=== PATIENT | male | born 1955 | race Caucasian/White ===

== ENCOUNTER 2021-01-28 01:07 | Emergency (ER) | payer MEDICARE, OTHER ==
[2021-01-28] MEDS ORDERED: HYDROmorphone 0.5 MG/0.5 ML Syringe IVPUSH PRN (01:18)
--- NOTE | 2021-01-28 01:22 | EDM.PDOC ---
ED HPI GENERAL MEDICAL PROBLEM - General Chief Complaint: Flank Pain Stated Complaint: Flank pain Time Seen by Provider: 01/28/21 01:10 Source of Information: Reports: Patient History Limitations: Reports: No Limitations - History of Present Illness INITIAL COMMENTS - FREE TEXT/NARRATIVE: Patient comes in with complaint of suspected kidney stone. Has had renal stones before, one required surgery for removal. Has felt intermittent discomfort right flank since November, saying that he figured he had a stone that was "moving". NSAIDs helped. Now has had pain for a week that has gradually worsened. Feels like he can't urinate today. No hematuria. No fevers/chills/nausea/emesis/bowel changes. Denies HEENT/Resp/CV/Neuro changes. - Related Data Allergies Allergy/AdvReac Type Severity Reaction Status Date / Time No Known Allergies Allergy Verified 01/28/21 02:36 Home Meds: Home Meds Aspirin [Children's Aspirin] 81 mg PO BEDTIME 06/11/14 [History] Metoprolol Succinate [Toprol XL] 200 mg PO QAM 06/11/14 [History] Simvastatin 40 mg PO BEDTIME 06/11/14 [History] amLODIPine Besylate/Benazepril [Amlodipine-Benazepril 10-20 MG] 1 tab PO QPM 06/11/14 [History] sitaGLIPtin Phosphate [Januvia] 100 mg PO QAM 06/11/14 [History] Vit C/E/Zn/Certified Pediatric Nurse Practitioner/Lut/Talib/Bio/Saf [Retaine Vision Softgel] 1 cap PO DAILY 01/28/21 [History] glipiZIDE [Glucotrol XL] 1 tab PO BID 01/28/21 [History] metFORMIN HCl [Metformin HCl] 1 tab PO BID 01/28/21 [History] Past Medical History Cardiovascular History: Reports: High Cholesterol, Hypertension Respiratory History: Reports: COPD Genitourinary History: Reports: Renal Calculus Endocrine/Metabolic History: Reports: Diabetes, Type II Social & Family History - Tobacco Use Tobacco Use Status *Q: Current Every Day Tobacco User Packs/Tins Daily: 2 ED ROS GENERAL - Review of Systems Review Of Systems: Comprehensive ROS is negative, except as noted in HPI. ED EXAM, GENERAL - Physical Exam Exam: See Below Exam Limited By: No Limitations General Appearance: Alert, WD/WN, Mild Distress Eye Exam: Bilateral Eye: EOMI, PERRL Ears: Normal External Exam, Hearing Loss Nose: No: Nasal Deformity, Nasal Swelling, Nasal Drainage Throat/Mouth: Normal Lips, Normal Voice, No Airway Compromise Head: Atraumatic, Normocephalic Neck: Supple Respiratory/Chest: No Respiratory Distress, No Accessory Muscle Use, Chest Non-Tender, Wheezing (minimal wheeze noted left lung) Cardiovascular: Regular Rate, Rhythm, No Murmur GI/Abdominal: Soft, Tender (right side of abdomen). No: Rigid, Rebound (Male) Exam: Deferred Rectal (Males) Exam: Normal Rectal Tone, Deferred, Other (Prostate slightly enlarged. ). No: Prostate Nodule, Tenderness Back Exam: No: CVA Tenderness (L), CVA Tenderness (R), Muscle Spasm, Paraspinal Tenderness, Vertebral Tenderness Extremities: Normal Inspection, Normal Capillary Refill Neurological: Alert, Oriented, Normal Cognition, Normal Gait Psychiatric: Normal Affect, Normal Mood Skin Exam: Warm, Dry, Intact, Normal Color Course - Vital Signs Last Recorded V/S: Last Vital Signs Temp 37.1 C 01/28/21 01:10 Pulse 65 01/28/21 01:10 Resp 18 01/28/21 01:10 BP 128/70 01/28/21 01:10 Pulse Ox 96 01/28/21 01:10 - Orders/Labs/Meds Orders: Active Orders 24 hr Category Date Time Status Carpenter Catheter Insertion [Insert Urinary Catheter] [OM. Care 01/28/21 01:30 Ordered PC] Q24H Abdomen Pelvis wo Cont [CT] Stat Exams 01/28/21 01:19 Taken Saline Lock Insert [OM.PC] Routine Oth 01/28/21 01:17 Ordered Labs: Laboratory Tests 01/28/21 01/28/21 01/28/21 Range/Units 01:25 01:25 01:25 WBC 12.4 H (4.0-10.2) K/uL RBC 4.94 (4.33-5.41) M/uL Hgb 15.3 (13.1-16.8) g/dL Hct 44.3 (39.0-49.0) % MCV 89.7 (84.0-98.0) fL MCH 31.0 (28.2-33.3) pg MCHC 34.5 (31.7-36.0) g/dL RDW 13.0 (11.2-14.1) % Plt Count 306 (150-350) K/uL Neut % (Auto) 63.8 (45.0-80.0) % Lymph % (Auto) 20.5 (10.0-50.0) % [place] % (Auto) 12.0 (2.0-14.0) % Eos % (Auto) 3.2 (0.0-5.0) % Baso % (Auto) 0.5 (0.0-2.0) % Neut # (Auto) 7.89 H (1.40-7.00) K/uL Lymph # (Auto) 2.54 (0.50-3.50) K/uL [place] # (Auto) 1.49 H (0.00-1.00) K/uL Eos # (Auto) 0.39 (0.00-0.50) K/uL Baso # (Auto) 0.06 (0.00-0.20) K/uL Sodium 135 L (136-145) mmol/L Potassium 3.9 (3.5-5.1) mmol/L Chloride 100 (98-107) mmol/L Carbon Dioxide 25.0 (21.0-32.0) mmol/L Anion Gap 13.9 (7-15) meq/L BUN 20 H (7-18) mg/dL Creatinine 0.85 (0.51-1.17) mg/dL Est Cr Clr Drug Dosing TNP Estimated GFR (MDRD) > 60 mL/min Glucose 160 H (70-99) mg/dL Lactic Acid 0.8 (0.4-2.0) mmol/L Calcium 8.7 (8.5-10.1) mg/dL Magnesium 1.9 (1.8-2.4) mg/dL Total Bilirubin 0.4 (0.2-1.0) mg/dL AST 14 L (15-37) U/L ALT 28 (12-78) U/L Alkaline Phosphatase 65 (46-116) IU/L Total Protein 7.5 (6.4-8.2) g/dL Albumin 4.0 (3.4-5.0) g/dL Specimen Type Urine Color Urine Appearance Urine pH (5.0-9.0) Ur Specific [place] (1.005-1.030) Urine Protein (NEGATIVE) mg/dL Urine Glucose (UA) (NEGATIVE) mg/dL Urine Ketones (NEGATIVE) mg/dL Urine Occult Blood (NEGATIVE) Urine Nitrite (NEGATIVE) Urine Bilirubin (NEGATIVE) Urine Urobilinogen (0.2-1.0) E.U./dL Ur Leukocyte Esterase (NEGATIVE) Urine RBC /HPF Urine WBC /HPF Ur Epithelial Cells /LPF Urine Bacteria (NONE TO FEW) /HPF Urine Mucus (NEGATIVE) /LPF 01/28/21 Range/Units 01:35 WBC (4.0-10.2) K/uL RBC (4.33-5.41) M/uL Hgb (13.1-16.8) g/dL Hct (39.0-49.0) % MCV (84.0-98.0) fL MCH (28.2-33.3) pg MCHC (31.7-36.0) g/dL RDW (11.2-14.1) % Plt Count (150-350) K/uL Neut % (Auto) (45.0-80.0) % Lymph % (Auto) (10.0-50.0) % [place] % (Auto) (2.0-14.0) % Eos % (Auto) (0.0-5.0) % Baso % (Auto) (0.0-2.0) % Neut # (Auto) (1.40-7.00) K/uL Lymph # (Auto) (0.50-3.50) K/uL [place] # (Auto) (0.00-1.00) K/uL Eos # (Auto) (0.00-0.50) K/uL Baso # (Auto) (0.00-0.20) K/uL Sodium (136-145) mmol/L Potassium (3.5-5.1) mmol/L Chloride (98-107) mmol/L Carbon Dioxide (21.0-32.0) mmol/L Anion Gap (7-15) meq/L BUN (7-18) mg/dL Creatinine (0.51-1.17) mg/dL Est Cr Clr Drug Dosing Estimated GFR (MDRD) mL/min Glucose (70-99) mg/dL Lactic Acid (0.4-2.0) mmol/L Calcium (8.5-10.1) mg/dL Magnesium (1.8-2.4) mg/dL Total Bilirubin (0.2-1.0) mg/dL AST (15-37) U/L ALT (12-78) U/L Alkaline Phosphatase (46-116) IU/L Total Protein (6.4-8.2) g/dL Albumin (3.4-5.0) g/dL Specimen Type Urinblad Urine Color Yellow Urine Appearance Clear Urine pH 6.0 (5.0-9.0) Ur Specific [place] 1.025 (1.005-1.030) Urine Protein Negative (NEGATIVE) mg/dL Urine Glucose (UA) 250 H (NEGATIVE) mg/dL Urine Ketones Negative (NEGATIVE) mg/dL Urine Occult Blood Trace-intact H (NEGATIVE) Urine Nitrite Negative (NEGATIVE) Urine Bilirubin Negative (NEGATIVE) Urine Urobilinogen 0.2 (0.2-1.0) E.U./dL Ur Leukocyte Esterase Negative (NEGATIVE) Urine RBC 5-10 H /HPF Urine WBC 0-5 /HPF Ur Epithelial Cells Not seen /LPF Urine Bacteria Rare (NONE TO FEW) /HPF Urine Mucus Rare H (NEGATIVE) /LPF Meds: Medications Discontinued Medications Generic Name Dose Route Start Last Admin Trade Name Freq PRN Reason Stop Dose Admin Hydromorphone HCl 0.5 mg 01/28/21 01:17 01/28/21 01:55 Hydromorphone 0.5 Mg/0.5 Ml Syringe IVPUSH 01/28/21 01:18 0.5 mg ONETIME ONE Administration Hydromorphone HCl 0.5 mg 01/28/21 01:18 Hydromorphone 0.5 Mg/0.5 Ml Syringe IVPUSH Q3H PRN Pain Sodium Chloride 1,000 mls @ 999 mls/hr 01/28/21 01:19 01/28/21 01:48 Normal Saline IV 01/28/21 02:19 999 mls/hr .BOLUS ONE Administration Sodium Chloride 1,000 mls @ 150 mls/hr 01/28/21 02:30 Normal Saline IV ASDIRECTED [facility] Ondansetron HCl 4 mg 01/28/21 01:17 01/28/21 01:56 Ondansetron 4 Mg/2 Ml Sdv IVPUSH 01/28/21 01:18 4 mg ONETIME ONE Administration Sodium Chloride 10 ml 01/28/21 01:17 01/28/21 01:52 Sodium Chloride 0.9% 10 Ml Syringe FLUSH 10 ml ASDIRECTED PRN Administration Keep Vein Open Tamsulosin HCl 0.4 mg 01/28/21 01:19 01/28/21 01:54 Tamsulosin 0.4 Mg Cap.Er PO 01/28/21 01:20 0.4 mg ONETIME ONE Administration - Re-Assessments/Exams Free Text/Narrative Re-Assessment/Exam: 01/28/21 01:29 Bladder scan showed 900ml of retained urine. Will insert Carpenter for drainage and comfort. IV fluids/Flomax/Dilaudid/Zofran also ordered. CT of abdomen and pelvis pending. 01/28/21 02:15 Over 1200ml drained from bladder. Patient feeling more comfortable. Free Text/Narrative Re-Assessment/Exam: 01/28/21 02:58 Mild elevation WBC, otherwise overall unremarkable labs. Some RBCs in urine. Radiologist notes that patient has stones in kidneys but nothing noted in ureters. No hydronephrosis. No unusual appearance of prostate. May be a passed stone in bladder. Patient pain-free at this time. Uncertain if there is an actual stone in the bladder. No stone noted when Carpenter bag strained. If urinary retention returns additional workup will be needed. Plan at this time is to let patient rest and let Dilaudid wear off. He will be discharged home with follow up as needed by PCP. Departure - Departure Time of Disposition: 04:00 Disposition: Home, Self-Care 01 Condition: Good Clinical Impression: Ureteric colic, Urinary retention - Discharge Information *PRESCRIPTION DRUG MONITORING PROGRAM REVIEWED*: Not Applicable *COPY OF PRESCRIPTION DRUG MONITORING REPORT IN PATIENT SARA: Not Applicable Instructions: Acute Urinary Retention, Male, [id number] Referrals: Micki Nagy NP [Primary Care Provider] - Forms: ED Department Discharge Additional Instructions: Observe for changes. See if you have any return of pain or of urinary retention. Follow up as needed if you have any additional problems. You will need further evaluation if symptoms return. Sepsis Event Note (ED) - Focused Exam Vital Signs: Vital Signs Temp Pulse Resp BP Pulse Ox 01/28/21 01:10 37.1 C 65 18 128/70 96 - My Orders Last 24 Hours: My Active Orders 01/28/21 01:17 Saline Lock Insert [OM.PC] Routine 01/28/21 01:19 Abdomen Pelvis wo Cont [CT] Stat 01/28/21 01:30 Carpenter Catheter Insertion [Insert Urinary Catheter] [OM.PC] Q24H - Assessment/Plan Last 24 Hours: My Active Orders 01/28/21 01:17 Saline Lock Insert [OM.PC] Routine 01/28/21 01:19 Abdomen Pelvis wo Cont [CT] Stat 01/28/21 01:30 Carpenter Catheter Insertion [Insert Urinary Catheter] [OM.PC] Q24H
[2021-01-28 01:44] LABS: CHLORIDE,CL 100 mmol/L (98-107); SODIUM,NA 135 mmol/L (136-145)
[2021-01-28 01:48] LABS: ANION GAP 13.9 meq/L (7-15)
[2021-01-28] MEDS: Sodium Chloride 0.9% 1,000 ML IV ONE (01:48)
[2021-01-28] MEDS: Sodium Chloride 0.9% 10 ML Syringe FLUSH PRN (01:52)
[2021-01-28] MEDS: Tamsulosin 0.4 MG Cap.ER PO ONE (01:54)
[2021-01-28] MEDS: HYDROmorphone 0.5 MG/0.5 ML Syringe IVPUSH ONE (01:55)
[2021-01-28] MEDS: Ondansetron 4 MG/2 ML SDV IVPUSH ONE (01:56)
[2021-01-28] MEDS ORDERED: Sodium Chloride 0.9% 1,000 ML IV SCH (02:30)
[2021-01-28 04:44] VITALS: BP 128/70; PULSE 65
== END 2021-01-28 04:10 | disposition home or self-care (01) ==
LOC: LL.ED 01:07
DX: N23 Unspecified renal colic (principal); R33.9 Retention of urine, unspecified; E78.00 Pure hypercholesterolemia, unspecified; I10 Essential (primary) hypertension; I25.2 Old myocardial infarction; J44.9 Chronic obstructive pulmonary disease, unspecified; E11.9 Type 2 diabetes mellitus without complications; Z79.82 Long term (current) use of aspirin; Z79.899 Other long term (current) drug therapy; Z79.84 Long term (current) use of oral hypoglycemic drugs; Z72.0 Tobacco use
CPT/HCPCS: 36415; 74176; 80053; 81001; 83605; 83735; 85025; 96374; 96375; 99284; A9270; J1170; J2405; J7030

== ENCOUNTER 2023-05-03 11:41 | Day surgery (SDC) | payer MEDICARE, OTHER ==
[~2023-05-03 11:41] MED LIST: Lactated Ringers 1,000 ML IV SCH; Midazolam 1 MG/ML 2 ML SDV ONE; Propofol 200 MG/20 ML SDV ONE; Sodium Chloride 0.9% 10 ML Syringe FLUSH PRN
[2023-05-03 14:58] VITALS: BP 124/68; PULSE 70
== END 2023-05-03 14:30 | disposition home or self-care (01) ==
LOC: LL.SDS 11:41
PROVIDERS: ATTEND Surgery
DX: Z12.11 Encounter for screening for malignant neoplasm of colon (principal); K57.30 Diverticulosis of large intestine without perforation or abscess without bleeding; E11.59 Type 2 diabetes mellitus with other circulatory complications; I10 Essential (primary) hypertension; E11.69 Type 2 diabetes mellitus with other specified complication; E78.5 Hyperlipidemia, unspecified; F17.210 Nicotine dependence, cigarettes, uncomplicated; Z79.84 Long term (current) use of oral hypoglycemic drugs; Z79.899 Other long term (current) drug therapy
CPT/HCPCS: 82947; J2250; J2704; J7120